=== PATIENT | male | born 1985 | race African-American/Black ===

== ENCOUNTER 2017-09-09 17:56 | Emergency (ER) | payer OTHER ==
[2017-09-09] MEDS ORDERED: ONDANSETRON HCL/PF 2 MG/ML VIAL IV ONE (18:03)
[2017-09-09] MEDS ORDERED: MORPHINE SULFATE 2 MG/ML DISP.SYRIN IV ONE ×4 (18:04→21:22)
[2017-09-09] MEDS ORDERED: ONDANSETRON HCL/PF 2 MG/ML VIAL ONE (18:39)
[2017-09-09] MEDS ORDERED: MORPHINE SULFATE 2 MG/ML DISP.SYRIN ONE ×4 (18:39→21:24)
[2017-09-09 19:09] LABS: Hematocrit 41.3 % (42.0-52.0); Mean Cell Volume 91.2 fl (78-100); Mean Corpuscular Hemoglobin 30.9 pg (27-31); Mean Corpuscular Hgb Conc 33.9 g/dl (32-36); Mean Platelet Volume 9.2 fl (6.0-9.5); Neutrophil # 2.3 K/mm3 (1.3-6.0); Neutrophil % 48.4 % (42-75.0); Platelet Count 180 K/mm3 (150-450); Red Blood Count 4.53 M/mm3 (4.7-6.0); Red Cell Distribution Width 13.4 % (11.5-14.0); White Blood Count 4.8 K/mm3 (4.0-10.5)
[2017-09-09] MEDS ORDERED: LIDOCAINE HCL 10 APPL CARTRIDGE ONE (19:16)
[2017-09-09 19:24] LABS: Albumin * 3.5 gm/dl (3.4-5.0); Anion Gap 11.8 mmol/L (6.8-13.8); BUN/Creatinine Ratio 13.4 (9.0-21.6); Bilirubin, Total 0.1 mg/dL (0.0-1.1); Ca. Corrected For Albumin 9.2 mg/dL (8.4-10.2); Calcium * 9.1 mg/dL (7.9-10.9); Carbon Dioxide 28.9 mmol/L (24-32.6); Potassium 3.7 mmol/L (3.4-4.6); Total Protein 7.2 gm/dL (6.2-8.2)
[2017-09-09 19:36] LABS: Urine Bilirubin Negative (NEGATIVE); Urine Blood Negative /ul (NEGATIVE); Urine Ketone Negative (NEGATIVE); Urine Nitrite Negative (NEGATIVE); Urine Protein Negative (NEGATIVE); Urine Urobilinogen Normal (NORMAL); Urine pH 7.5 pH (5.0-7.0)
[2017-09-09 19:50] LABS: Urine Appearance Clear; Urine Color Yellow; Urine RBC None Seen /hpf (0-5); Urine WBC 0-5 /hpf (0-5)
[2017-09-09 19:51] LABS: Urine Bacteria TRACE
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
[2017-09-09 23:49] VITALS: BP 161/78
== END 2017-09-09 23:58 | disposition short-term general hospital (02) ==
LOC: ER 17:56
PROC: 0T9B70Z Drainage of Bladder with Drainage Device, Via Natural or Artificial Opening (ICD-10-PCS; principal; 2017-09-09)
DX: G83.9 Paralytic syndrome, unspecified (principal); F17.200 Nicotine dependence, unspecified, uncomplicated; W13.2XXA Fall from, out of or through roof, initial encounter
CPT/HCPCS: 36415; 51702; 71260; 72125; 72129; 72132; 74177; 80053; 81001; 82272; 85025; 87086; 96374; 96375; 99283; J2405